=== PATIENT | female | born 1965 | race Caucasian/White ===

== ENCOUNTER 2018-01-14 06:28 | Day surgery (SDC) | payer OTHER ==
[2018-01-13 12:44] VITALS: BMI 38.0
[2018-01-14] MEDS ORDERED: Propofol 10 mg/ml Inj (20 ML) ONE (07:42)
[2018-01-14] MEDS ORDERED: Lactated Ringer's 1,000 ML IV SCH (09:45)
[2018-01-14 10:09] VITALS: RESP 18
[2018-01-14 10:19] VITALS: O2SAT 100
[2018-01-14 11:21] VITALS: BP 117/72; PULSE 70; TEMP 97.9
--- NOTE | 2018-01-16 08:52 | OP ---
PROCEDURE DATE: 01/14/2018 PREOPERATIVE DIAGNOSIS: A 52-year-old 4, para 4 with postmenopausal bleeding and endometrial thickening. POSTOPERATIVE DIAGNOSIS: A 52-year-old 4, para 4 with postmenopausal bleeding and endometrial thickening with endometrial polyp. SURGEON: Zaid Baron MD DRESS FINISHER: None. ANESTHESIA: Jarad Polanco. COMPLICATIONS: None. PROCEDURES PERFORMED: MyoSure, dilatation and curettage, hysteroscopy. DESCRIPTION OF PROCEDURE: After informed consent was obtained, the patient was brought into the operating room, placed on the table where general anesthesia was administered. Once the anesthesia was given, the patient was prepped and draped in the normal sterile fashion. Examination revealed uterus to be uterus revealed it to be 6 weeks size. No pelvic or adnexal masses. Anterior lip of the cervix was grasped with a tenaculum. Gentle dilatation of the cervix was done. It was found that there was a polyp on the posterior wall of the uterus. Picture was taken. MyoSure was used to move out the polyp or fibroid. After that, sharp curettage of the endometrial wall was taken. It was ECC and was sent to pathology. no polyp. The patient tolerated the procedure well. Deficit 150 mL. EBL was less than 20 mL. The patient tolerated the procedure well. Lap, sponge, and instrument counts were correct x2. Zaid Baron MD
== END 2018-01-14 10:57 | disposition home or self-care (01) ==
LOC: C.SDS 06:28
PROVIDERS: ATTEND Obstetrics & Gynecology
DX: N84.0 Polyp of corpus uteri (principal); N95.0 Postmenopausal bleeding; R93.89 Abnormal findings on diagnostic imaging of other specified body structures
CPT/HCPCS: 58558; 88305; J2270; J2405; J2704